=== PATIENT | female | born 1980 | race Caucasian/White ===

== ENCOUNTER 2017-12-23 16:40 | Emergency (ER) | payer OTHER, MEDICAID ==
[~2017-12-23] VITALS: Ht 157.5 cm; Wt 61.2 kg
[~2017-12-23 16:40] MED LIST: AZITHROMYCIN 2250 MG PO; BACTRIM DS TAB1 EACH PO; CEPHALEXIN 500500 M3 PO; FLAGYL500 MG PO; GENTAMICIN SU3 MG/ML OPHTHALMIC; HYDROCODON-ACE1 EAC7 PO; KEFLEX500 MG PO; LEVAQUIN 500 M500 M2 PO; MACROBID 100 M100 M1 PO; MEDROLDOSEPACK PO; NAPROSYN500 MG PO; PATANOL5 ML OPHTHALMIC; POLYMYXIN B/TMP10 ML OP; PROAIR HFA8.5 GM INH; PROMETHAZINE D480 ML PO; TESSALON PERLE100 MG PO
[2017-12-23 17:45] LABS: HEMATOCRIT 39.5 % (37.0-47.0); HEMOGLOBIN 13.4 gm/dL (12.0-15.0); MCH 31.6 pg (26.0-34.0); MPV 8.7 fl. (7.2-11.1); RBC 4.24 mil/uL (4.20-5.00); WBC 10.8 thou/uL (4.0-11.0)
[2017-12-23 18:01] LABS: CALCIUM 8.5 mg/dL (8.5-10.1); CREATININE 0.8 mg/dL (0.6-1.3); POTASSIUM 3.7 mmol/L (3.5-5.1)
[2017-12-23 18:13] VITALS: BP 124/75
== END 2017-12-23 18:13 | disposition home or self-care (01) ==
LOC: M.ERS 16:40
PROVIDERS: Personal Emergency Response Attendant
DX: L50.9 Urticaria, unspecified (principal); T78.49XA Other allergy, initial encounter; F17.210 Nicotine dependence, cigarettes, uncomplicated; X58.XXXA Exposure to other specified factors, initial encounter

== ENCOUNTER 2018-08-02 21:18 | Emergency (ER) | payer OTHER, MEDICAID ==
[~2018-08-02] VITALS: Ht 157.5 cm; Wt 63.5 kg
[2018-08-02] MEDS ORDERED: BACTRIM DS TAB1 EAC1 PO (21:47)
[2018-08-02] MEDS ORDERED: ACETAMINOPHEN-1 EAC1 PO (21:47)
[2018-08-02 22:02] VITALS: BP 140/89
== END 2018-08-02 22:03 | disposition home or self-care (01) ==
LOC: M.ERS 21:18
DX: L03.011 Cellulitis of right finger (principal); Z85.41 Personal history of malignant neoplasm of cervix uteri; F17.210 Nicotine dependence, cigarettes, uncomplicated

== ENCOUNTER 2018-10-06 08:04 | Emergency (ER) | payer OTHER ==
[~2018-10-06] VITALS: Ht 157.5 cm; Wt 61.2 kg
[~2018-10-06 08:04] MED LIST changes: +ACETAMINOPHEN-1 EAC1 PO; +BACTRIM DS TAB1 EAC1 PO
[2018-10-06 08:07] VITALS: BP 147/95
[2018-10-06] MEDS ORDERED: HYDROCODON-ACE1 EAC7 PO (08:15)
[2018-10-06] MEDS ORDERED: PENICILLIN VK500 MG PO (08:15)
== END 2018-10-06 08:19 | disposition home or self-care (01) ==
LOC: M.ERS 08:04
DX: K02.9 Dental caries, unspecified (principal); F17.210 Nicotine dependence, cigarettes, uncomplicated; Z98.890 Other specified postprocedural states; Z85.41 Personal history of malignant neoplasm of cervix uteri

== ENCOUNTER 2018-11-05 11:46 | Emergency (ER) | payer OTHER ==
[~2018-11-05] VITALS: Ht 157.5 cm; Wt 65.3 kg
[~2018-11-05 11:46] MED LIST changes: +PENICILLIN VK500 MG PO
[2018-11-05] MEDS ORDERED: VENTOLIN HFA 1818 GM INH (12:02)
[2018-11-05 12:25] LABS: ABSOLUTE BASOPHILS 0.1 thou/uL (0.0-0.2); ABSOLUTE EOSINOPHILS 0.1 thou/uL (0.0-0.7); ABSOLUTE LYMPHOCYTES 1.9 thou/uL (0.8-5.3); ABSOLUTE MONOCYTES 0.6 thou/uL (0.0-1.2); ABSOLUTE NEUTROPHILS 7.1 thou/uL (1.6-8.1); BASOPHILS 0.7 %; EOSINOPHILS 0.8 %; HEMATOCRIT 40.8 % (37.0-47.0); HEMOGLOBIN 13.8 gm/dL (12.0-15.0); LYMPHOCYTES 19.7 %; MCH 31.4 pg (26.0-34.0); MCHC 33.9 g/dL (28.0-37.0); MCV 92.6 fL (80.0-100.0); MONOCYTES 6.5 %; MPV 8.5 fl. (7.2-11.1); NUCLEATED RBCS 0 /100WBC; PLATELET COUNT* 250 thou/uL (150-400); POLYS 72.3 %; RDW-CV 12.9 % (10.5-14.5); WBC 9.8 thou/uL (4.0-11.0)
[2018-11-05 12:37] LABS: ANION GAP 10 mmol/L (7-16); BUN 15 mg/dL (7-18); CALCIUM 8.7 mg/dL (8.5-10.1); CHLORIDE 103 mmol/L (98-107); CO2 27 mmol/L (21-32); CREATININE 0.7 mg/dL (0.6-1.3); GLUCOSE 88 mg/dL (70-99); POTASSIUM 3.6 mmol/L (3.5-5.1); SODIUM 140 mmol/L (136-145)
[2018-11-05 12:48] LABS: ALBUMIN 3.5 g/dL (3.4-5.0); ALKALINE PHOSPHATASE 89 U/L (46-116); LIPASE 117 U/L (73-393); NT-PRO BRAIN NAT PEPTIDE 18 pg/mL (<300); SGOT 16 U/L (15-37); SGPT 24 U/L (30-65); TOTAL BILIRUBIN 0.4 mg/dL (<0.1-1.0); TROPONIN-I LEVEL <0.06 ng/mL (<0.06)
[2018-11-05 13:22] LABS: URINE BILIRUBIN NEGATIVE (Negative); URINE BLOOD TRACE (Negative); URINE CLARITY CLEAR; URINE COLOR YELLOW; URINE GLUCOSE-RANDOM NEGATIVE (Negative); URINE KETONES 1+ (Negative); URINE LEUKOCYTES-REFLEX NEGATIVE (Negative); URINE NITRITE-REFLEX NEGATIVE (Negative); URINE PROTEIN NEGATIVE (Negative); URINE SPECIFIC GRAVITY >= 1.030 (1.005-1.030); URINE UROBILINOGEN 0.2 E.U./dl (0.2-1.0)
[2018-11-05] MEDS ORDERED: IBUPROFEN 800800 M1 PO (13:35)
[2018-11-05 13:58] VITALS: BP 113/71
[2018-11-05 14:19] LABS: AMP/METHAMP POSITIVE (Negative); BARBITURATES Negative (Negative); BENZODIAZEPINES Negative (Negative); COCAINE Negative (Negative); METHADONE Negative (Negative); OPIATES Negative (Negative); PCP Negative (Negative); THC POSITIVE (Negative)
--- NOTE | 2018-11-05 16:27 | EKG ---
[place] [address] ELECTROCARDIOGRAM REPORT Name: KELSEY VICENTE Room: 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1980 Requested By: Safia Damico Order Number: [id number] Reading MD: Low Potter Measurements Intervals [place] Rate: 90 P: 29 [place]: 168 QRS: -39 QRSD: 94 T: 34 QT: 382 QTc: 468 Interpretive Statements Sinus rhythm Left axis deviation RSR' in V1 or V2, probably normal variant Compared to ECG 05/25/2016 11:00:16 Sinus tachycardia no longer present Electronically Signed On 11-05-2018 16:27:31 CDT by Low Potter [email or web address] <ELECTRONICALLY SIGNED> By: Low Potter MD, [facility] 11/05/18 3217 1152 1152 Low Potter MD, [facility] /EPI
== END 2018-11-05 13:58 ==
LOC: M.ERS 11:46
PROVIDERS: Nurse Practitioner Family
DX: F19.10 Other psychoactive substance abuse, uncomplicated (principal); R07.89 Other chest pain; F17.210 Nicotine dependence, cigarettes, uncomplicated; Z90.10 Acquired absence of unspecified breast and nipple; Z85.41 Personal history of malignant neoplasm of cervix uteri

== ENCOUNTER 2020-12-12 22:53 | Emergency (ER) | payer OTHER ==
[~2020-12-12] VITALS: Ht 160 cm; Wt 65.8 kg
[~2020-12-12 22:53] MED LIST changes: +IBUPROFEN 800800 M1 PO; +VENTOLIN HFA 1818 GM INH
[2020-12-12 23:01] VITALS: BP 116/82
--- NOTE | 2020-12-13 13:40 | EKG ---
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
== END 2020-12-13 01:35 | disposition left against medical advice (07) ==
LOC: M.ERS 22:53
DX: J45.901 Unspecified asthma with (acute) exacerbation (principal); Z20.822 Contact with and (suspected) exposure to COVID-19; F17.210 Nicotine dependence, cigarettes, uncomplicated; Z98.51 Tubal ligation status